=== PATIENT | female | born 1990 | race Caucasian/White ===

== ENCOUNTER 2022-04-17 11:31 | Inpatient (IN) | payer BC ==
[~2022-04-17] VITALS: Ht 160 cm; Wt 159.2 kg
[2022-05-14] VITALS (13 sets, daily range): BP systolic 129–173; BP diastolic 57–89; PULSE 90–100; TEMP 98.2–99
[2022-05-14] MEDS ORDERED: ZOLOFT 100MG100 MG PO (06:13)
[2022-05-14] MEDS ORDERED: WELLBUTRIN XL150 MG PO (06:14)
[2022-05-14] MEDS ORDERED: CRYSELLE 30 MCG1 TAB PO (06:14)
[2022-05-14] MEDS ORDERED: BUSPAR DIVIDOSE15 MG PO (06:15)
[2022-05-14] MEDS ORDERED: ATARAX 25MG25 MG/TAB PO (06:15)
[2022-05-14] MEDS ORDERED: XANAX .25M0.25 MG/TA PO (06:16)
--- NOTE | 2022-05-14 07:02 | NUR ---
0700 - Verbal orders recieved for Scope patch and LR from DR WHEELER
--- NOTE | 2022-05-14 07:05 | NUR ---
0700 - Verbal orders recieved from JEANETTE Whittington for LR and Scope patch. Unable to submit service order taker due to system error, GASOLINE ATTENDANT aware.
--- NOTE | 2022-05-14 07:20 | NUR ---
0710 - Scope patch applied behind R ear. Unable to scan medications and fluids due to computer error.
[2022-05-15 00:30] VITALS: BP 113/51; PULSE 77; TEMP 98.5
[2022-05-15 04:20] VITALS: BP 116/52; PULSE 76; TEMP 98.5
[2022-05-15 07:18] VITALS: BP 112/57; PULSE 86; TEMP 97.9
[2022-05-15] MEDS ORDERED: IBU600 MG PO (08:34)
[2022-05-15] MEDS ORDERED: ROXICODONE 55 MG/TAB PO (08:35)
--- NOTE | 2022-05-15 09:51 | NUR ---
Initial visit; Patient thanked Shipping Coordinator for looking in on her and offering God's blessings. Patient's mother was also present.
--- NOTE | 2022-05-15 11:19 | NUR ---
PATIENT HAS AMBULATED IN HALLWAY MULTIPLE TIMES THIS MORNING WITHOUT DIFFICULTY. PATIENT REPORTS ACCEPTABLE PAIN LEVELS. CARE ONGOING.
[2022-05-15 11:55] VITALS: BP 125/69; PULSE 83; TEMP 97.9
[2022-05-15 16:30] VITALS: BP 110/52; PULSE 66; TEMP 98
[2022-05-15 20:15] VITALS: BP 135/71; PULSE 91; TEMP 98.5
[2022-05-16 08:10] VITALS: BP 145/73; PULSE 91; TEMP 97.4
--- NOTE | 2022-05-16 09:45 | NUR ---
0945- Discharge instructions reviewed with patient and family member. Questions answered and patient instructed on leaving unit.
--- NOTE | 2022-05-16 10:10 | NUR ---
THIS RN REVIEWED CHARTING AND SUPERVISED CARE BY KASI CANDELARIO FOR THIS SHIFT UNTIL PATIENT DISCHARGE AT 1010.
== END 2022-05-16 10:10 | disposition home or self-care (01) | DRG 742 ==
LOC: INPTSU 05-14 05:32 → OB 05-14 05:32
PROVIDERS: ADMIT Obstetrics & Gynecology
PROC: 0UT90ZZ Resection of Uterus, Open Approach (ICD-10-PCS; principal; 2022-05-14 07:30)
PROC: 0UT70ZZ Resection of Bilateral Fallopian Tubes, Open Approach (ICD-10-PCS; 2022-05-14 07:30)
DX: N92.0 Excessive and frequent menstruation with regular cycle (principal); Z68.44 Body mass index [BMI] 60.0-69.9, adult; N94.5 Secondary dysmenorrhea; E28.2 Polycystic ovarian syndrome; F32.9 Major depressive disorder, single episode, unspecified; F41.3 Other mixed anxiety disorders; G47.33 Obstructive sleep apnea (adult) (pediatric); K21.9 Gastro-esophageal reflux disease without esophagitis; E66.01 Morbid (severe) obesity due to excess calories
CPT/HCPCS: A4314; J0171; J0360; J0690; J1100; J1170; J1885; J2270; J2405; J2704; J2710; J3010; J7120